=== PATIENT | male | born 1950 | race Hispanic/Latino ===

== ENCOUNTER 2018-09-22 05:21 | Observation (INO) | payer MEDICARE ==
[2018-09-04 14:39] LABS: BASOPHILS % 0.8 % (0.0-1.0); EOSINOPHILS # (AUTO) 0.2 (0.0-0.4); EOSINOPHILS % 4.3 % (0.0-6.0); HEMATOCRIT 43.6 % (38.2-49.6); HEMOGLOBIN 14.8 g/dL (14.0-18.0); LYMPHOCYTES # (AUTO) 1.6 (1.0-3.2); LYMPHOCYTES % 30.2 % (18.0-39.1); MEAN CORPUSCULAR HEMOGLOBIN 32.9 pg (28-32); MEAN CORPUSCULAR HGB CONC 33.9 g/dL (31-35); MEAN CORPUSCULAR VOLUME 96.9 fL (81-99); MONOCYTES # (AUTO) 0.6 (0.2-0.8); MONOCYTES % 11.5 % (4.4-11.3); NEUTROPHILS # (AUTO) 2.8 (2.1-6.9); PLATELET COUNT 169 x10e3/uL (140-360); RED CELL DISTRIBUTION WIDTH 13.6 % (11.7-14.4)
[2018-09-04 15:00] LABS: ANION GAP 16.1 mmol/L (8-16); BLOOD UREA NITROGEN 14 mg/dL (7-26); BUN/CREATININE RATIO 18 (6-25); CALCIUM 9.7 mg/dL (8.4-10.2); CARBON DIOXIDE 24 mmol/L (22-29); CHLORIDE 105 mmol/L (98-107); CREATININE, SERUM 0.78 mg/dL (0.72-1.25); EST GLOMERULAR FILTRATION RATE > 60 ML/MIN (60-); GLUCOSE 131 mg/dL (74-118); POTASSIUM 4.1 mmol/L (3.5-5.1); SODIUM 141 mmol/L (136-145)
--- NOTE | 2018-09-04 15:12 | Diagnostic Imaging Report ---
EXAMINATION: CHEST 2 VIEWS COMPARISON: Chest radiograph 06/22/2015. FINDINGS: TUBES and LINES: None. LUNGS: Lungs are well inflated. There is no evidence of pneumonia or pulmonary edema. PLEURA: No pleural effusion or pneumothorax. HEART AND MEDIASTINUM: The cardiomediastinal silhouette is unremarkable. There are atherosclerotic calcifications within the aorta. Tortuous thoracic aorta. BONES AND SOFT TISSUES: Findings compatible with diffuse idiopathic skeletal hyperostosis. UPPER ABDOMEN: No free air under the diaphragm. IMPRESSION: No acute radiographic abnormality. Signed by: Dr. Ashley Melgar MD on 09/04/2018 3:09 PM
[~2018-09-22] VITALS: Ht 180.3 cm; Wt 115.2 kg
[~2018-09-22 05:21] MED LIST: AUGMENTIN 875-1 EACH; BYSTOLIC PO; BYSTOLIC5 MG PO; LISINOPRIL10 MG PO; METFORMIN HCL500 MG PO; SIMVASTATIN40 MG PO; VICODIN 5-5001 EACH; VICOPROFEN 2001 EACH; VICTOZA 3-0.6 MG/0.1 SC
--- OUTSIDE RECORDS SUMMARY | 2018-09-22 05:23 | XMS REPORT | Continuity of Care Document ---
Author Author [facility] Interface Address Unknown Phone Unavailable Problems Problem Status Onset Date Classification Date Reported Comments Source NON SUPPURATIVE OTITIS MEDIA, TYMPANIC M Active 08/05/2017 [facility] CONDUCTIVE HEARING LOSS, CHRONIC NON SUP Active 2017 [facility] H66.3X9 - OTHER CHRONIC SUPPURATIVE OTIT [facility] H72.819 - MULTIPLE PERFORATIONS OF TYMPA Active 03/01/2017 ADRIANA Slater 379.91 - PAIN IN OR AROU Active 02/07/2012 [facility] Hard of hearing Active Problem 09/01/2017 [facility] HLD (<span ID="[id number]">Confirmed</span>) Active Problem 09/01/2017 [facility]N (<span ID="[id number]">Confirmed</span>) Active Problem 09/01/2017 [facility] Morbid obesity Active Problem 09/01/2017 [facility] CHRIS (<span ID="[id number]">Confirmed</span>)<sup>1</sup> Active Problem 09/01/2017 uses CPAP [facility] DM II , controlled(<span ID="[id number]">Confirmed</span>) Active Problem 09/01/2017 [facility] MIXED CONDUCTIVE AND SENSORINEURAL HEARI Active [facility] Medications Medication Details Route Status Patient Instructions Ordering Provider Order Date Source ondansetron (ANES) Route: IV, Drug form: INJ, ONCE, Stop date: 08/29/17 19:16:00 CDT Inactive 08/30/2017 [facility] tramadol 50 mg oral tablet 50 mg=1 tab, PO, Q6H, PRN Pain, X 7 day, # 30 tab, 0 Refill(s) Active 08/29/2017 [facility] ondansetron 4 mg oral tablet 4 mg=1 tab, PO, Q8H, PRN Nausea & Vomiting, # 30 tab, 0 Refill(s) Active 08/29/2017 [facility] ofloxacin otic 0.3% solution 5 drp, LEFT EAR, BID, X 14 day, # 10 mL, 1 Refill(s) Active 08/29/2017 [facility] oxyCODONE 5 mg oral tablet 5 mg, Route: PO, Drug form: TAB, ONCE, Dosing Weight 115.455, kg, PRN Pain Score 4-6, Start date: 08/29/17 11:26:00 CDT No Longer Active 08/29/2017 [facility] ePHEDrine (ANES) Route: IV, Drug form: INJ, ONCE, Stop date: 08/29/17 10:25:00 CDT Inactive 08/29/2017 [facility] famotidine (ANES) Route: IV, Drug form: INJ, ONCE, Stop date: 08/29/17 10:24:00 CDT Inactive 08/29/2017 [facility] lidocaine (ANES) Route: IV, Drug form: INJ, ONCE, Stop date: 08/29/17 10:24:00 CDT Inactive 08/29/2017 [facility] dexamethasone (ANES) Route: IV, Drug form: INJ, ONCE, Stop date: 08/29/17 10:24:00 CDT Inactive 08/29/2017 [facility] propofol (ANES) Route: IV, Drug form: INJ, ONCE, Stop date: 08/29/17 10:24:00 CDT Inactive 08/29/2017 [facility] succinylcholine (ANES) Route: IV, Drug form: INJ, ONCE, Stop date: 08/29/17 10:24:00 CDT Inactive 08/29/2017 [facility] fentaNYL (ANES) Route: IV, Drug form: INJ, ONCE, Stop date: 08/29/17 10:24:00 CDT Inactive 08/29/2017 [facility] phenylephrine (ANES) Route: IV, Drug form: INJ, ONCE, Stop date: 08/29/17 10:19:00 CDT Inactive 08/29/2017 [facility] ceFAZolin (ANES) Route: IV, Drug form: INJ, ONCE, Stop date: 08/29/17 10:19:00 CDT Inactive 08/29/2017 [facility] ANES naloxone 0.4 mg, 1 mL, Route: IVP, Drug form: INJ, Q2MIN, Dosing Weight 115.455, kg, PRN Narcotic Reversal, Start date: 08/29/17 10:16:00 CDT, Duration: 8 doses or times, Stop date: 08/30/17 0:00:00 CDTNotes: Same as Narcan No Longer Active 08/29/2017 [facility] ANES HYDROmorphone 0.5 mg, 0.25 mL, Route: IVP, Drug form: INJ, Q5Min, Dosing Weight 115.455, kg, PRN Pain Score 7-10, Start date: 08/29/17 10:16:00 CDT, Duration: 4 doses or times, Stop date: 08/30/17 0:00:00 CDTNotes: Same as: Dilaudid No Longer Active 08/29/2017 [facility] ANES flumazenil 0.2 mg, 2 mL, Route: IVP, Drug form: INJ, PRN, Dosing Weight 115.455, kg, PRN Benzodiazepine Reversal, Initial dose, Start date: 08/29/17 10:16:00 CDT, Duration: 30 day, Stop date: 09/28/17 9:15:00 CSTNotes: (Same as: Romazicon) No Longer Active 08/29/2017 [facility] ANES fentaNYL 25 microgram, 0.5 mL, Route: IVP, Drug form: INJ, Q5Min, Dosing Weight 115.455, kg, PRN Pain Score 4-6, Priority: Routine, Start date: 08/29/17 10:16:00 CDT, Duration: 4 doses or times, Stop date: 08/30 0:00:00 CDTNotes: (Same as: Sublimaze) Preservative free. No Longer Active 08/29/2017 [facility] ANES ondansetron 4 mg, 2 mL, Route: IVP, Drug form: INJ, ONCE, Dosing Weight 115.455, kg, PRN Nausea & Vomiting, Start date: 08/29/17 10:16:00 CDTNotes: (Same as: Zofran) MEDICATION WASTE Product Size: 4 mg Product Wasted: ___ mg No Longer Active 08/29/2017 [facility] ANES labetalol 10 mg, 2 mL, Route: IVP, Drug form: INJ, Q5Min, Dosing Weight 115.455, kg, PRN Elevated BP, Start date: 08/29/17 10:16:00 CDT, Duration: 5 doses or times, Stop date: 08/30/17 0:00:00 CDT No Longer Active 08/29/2017 [facility] acetaminophen (ANES) (ANES) Route: IV, Drug form: INJ, Start date: 08/29/17 10:15:00 CDT, Stop date: 08/29/17 11:15:00 CDT Inactive 08/29/2017 [facility] sodium chloride 0.9% 100 ml INJ (ANES) + magnesium sulfate (ANES) (ANES) Route: IV, Drug form: INJ, Start date: 08/29/17 10:04:00 CDT, Stop date: 08/29/17 11:04:00 CDT Inactive 08/29/2017 [facility] sodium chloride 0.9% 100 ml INJ (ANES) + remifentanil (ANES) (ANES) Route: IV, Drug form: INJ, Start date: 08/29/17 8:59:00 CDT, Stop date: 08/29/17 9:59:00 CDT Inactive 08/29/2017 [facility] LR 1000 mL INJ (ANES) Route: IV, Total Volume: 1,000, Start date: 08/29/17 8:23:00 CDT, Stop date: 08/29/17 9:23:00 CDT Inactive 08/29/2017 [facility] Osteo Bi-Flex 1 tab, PO, BID, 0 Refill(s) Active 08/08/2017 [facility] Victoza 18 mg/3 mL subcutaneous injection 1.2 mg, SUB-Q, Daily, # 6 mL, 3 Refill(s) Active 08/08/2017 [facility] losartan 50 mg, PO, Daily, 0 Refill(s) Active 08/08/2017 [facility] tramadol hydrochloride 50 MG Oral Tablet 50 mg=1 tab, PO, Q4H, PRN Pain, X 10 day, # 60 tab, 0 Refill(s) Active 03/28/2017 [facility] Amoxicillin 875 MG / Clavulanate 125 MG Oral Tablet [Augmentin 875-mg] 875 mg=1 tab, PO, Q12H, X 10 day, # 20 tab, 0 Refill(s) Active 03/28/2017 [facility] ondansetron (ANES) Route: IV, Drug form: INJ, ONCE, Stop date: 03/28/17 15:11:00 CDT Inactive 03/28/2017 [facility] furosemide (ANES) Route: IV, Drug form: INJ, ONCE, Stop date: 03/28/17 14:11:00 CDT Inactive 03/28/2017 [facility] phenylephrine (ANES) Route: IV, Drug form: INJ, ONCE, Stop date: 03/28/17 12:36:00 CDT Inactive 03/28/2017 [facility] magnesium sulfate (ANES) (ANES) Route: IV, Drug form: INJ, Start date: 03/28/17 12:32:00 CDT, Stop date: 03/28/17 13:32:00 CDT Inactive 03/28/2017 [facility] acetaminophen (ANES) Route: IV, Drug form: INJ, ONCE, Stop date: 03/28/17 12:32:00 CDT Inactive 03/28/2017 [facility] fentaNYL (ANES) Route: IV, Drug form: INJ, ONCE, Stop date: 03/28/17 12:32:00 CDT Inactive 03/28/2017 [facility] succinylcholine (ANES) Route: IV, Drug form: INJ, ONCE, Stop date: 03/28/17 12:32:00 CDT Inactive 03/28/2017 [facility] propofol (ANES) Route: IV, Drug form: INJ, ONCE, Stop date: 03/28/17 12:31:00 CDT Inactive 03/28/2017 [facility] lidocaine (ANES) Route: IV, Drug form: INJ, ONCE, Stop date: 03/28/17 12:31:00 CDT Inactive 03/28/2017 [facility] ceFAZolin (ANES) Route: IV, Drug form: INJ, ONCE, Stop date: 03/28/17 12:26:00 CDT Inactive 03/28/2017 [facility] Ondansetron 4 mg, 2 mL, Route: IVP, Drug form: INJ, ONCE, Dosing Weight 118.182, kg, PRN Nausea & Vomiting, Start date: 03/28/17 12:11:00 CDTNotes: (Same as: Zofran) MEDICATION WASTE Product Size: 4 mg Product Wasted: ___ mg No Longer Active 03/28/2017 [facility] Oxycodone 10 mg, 2 tab, Route: PO, Drug form: TAB, Q4H, Dosing Weight 118.182, kg, PRN Pain Score 7-10, Start date: 03/28/17 12:11:00 CDT, Duration: 30 day, Stop date: 04/27/17 12:10:00 CDTNotes: (Same as: Valerie icodone) No Longer Active 03/28/2017 [facility] Naloxone 0.4 mg, 1 mL, Route: IVP, Drug form: INJ, Q2MIN, Dosing Weight 118.182, kg, PRN Narcotic Reversal, Start date: 03/28/17 12:11:00 CDT, Duration: 8 doses or times, Stop date: Limited # of timesNotes: Same as Narcan No Longer Active 03/28/2017 [facility] Flumazenil 0.2 mg, 2 mL, Route: IVP, Drug form: INJ, PRN, Dosing Weight 118.182, kg, PRN Benzodiazepine Reversal, Initial dose, Start date: 03/28/17 12:11:00 CDT, Duration: 30 day, Stop date: 04/27/17 12:10:00 CDTNotes: (Same as: Romazicon) No Longer Active 03/28/2017 [facility] Hydromorphone 0.5 mg, 0.25 mL, Route: IVP, Drug form: INJ, Q5Min, Dosing Weight 118.182, kg, PRN Pain Score 7-10, Start date: 03/28/17 12:11:00 CDT, Duration: 4 doses or times, Stop date: Limited # of timesNotes: Same as: Dilaudid No Longer Active 03/28/2017 [facility] Metoprolol 1 mg, 1 mL, Route: IVP, Drug form: INJ, Q5Min, Dosing Weight 118.182, kg, PRN Other -See Comment, Start date: 03/28/17 12:11:00 CDT, Duration: 5 doses or times, Stop date: Limited # of timesNotes: (S bethany as: Lopressor) Push over 2 minutes No Longer Active 03/28/2017 [facility] Labetalol 10 mg, 2 mL, Route: IVP, Drug form: INJ, Q5Min, Dosing Weight 118.182, kg, PRN Elevated BP, Start date: 03/28/17 12:11:00 CDT, Duration: 5 doses or times, Stop date: Limited # of times No Longer Active 03/28/2017 [facility] esmolol 10 mg, 1 mL, Route: IVP, Drug form: INJ, Q5Min, Dosing Weight 118.182, kg, PRN Other -See Comment, Start date: 03/28/17 12:11:00 CDT, Duration: 5 doses or times, Stop date: Limited # of timesNotes: ( Same as: Brevibloc) No Longer Active 03/28/2017 [facility] Hydralazine 10 mg, 0.5 mL, Route: IVP, Drug form: INJ, Q20Min, Dosing Weight 118.182, kg, PRN Elevated BP, Start date: 03/28/17 12:11:00 CDT, Duration: 2 doses or times, Stop date: Limited # of timesNotes: (Same as: Apresoline) Push over 5 minutes No Longer Active 03/28/2017 [facility] dexmedetomidine (ANES) (ANES) Route: IV, Drug form: INJ, Start date: 03/28/17 11:40:00 CDT, Stop date: 03/28/17 12:40:00 CDT Inactive 03/28/2017 [facility] LR 1000 mL INJ (ANES) Route: IV, Total Volume: 1,000, Start date: 03/28/17 10:57:00 CDT, Stop date: 03/28/17 11:57:00 CDT Inactive 03/28/2017 [facility] Allergies, Adverse Reactions, Alerts Substance Category Reaction Severity Reaction type Status Date Reported Comments Source Immunizations Immunization Date Given Site Status Last Updated Comments Source Results Order Name Results Value Reference Range Date Interpretation Comments Source ELECTROLYTES AGAP 14.1 meq/L 10.0 - 20.0 03/15/2017 [facility] ELECTROLYTES eGFR 91 mL/min/1.73m2 03/15/2017 Result Comment: The eGFR is calculated using the CKD-EPI formula. In most young, healthy individuals the eGFR will be >90 mL/min/1.73m2. The eGFR declines with age. An eGFR of 60-89 may be normal in some populations, particularly the elderly, for whom the CKD-EPI formula has not been extensively validated. Use of the eGFR is not recommended in the following populations: Individuals with unstable creatinine concentrations, including patients and those with serious co-morbid conditions. Patients with extremes in muscle mass or diet. The data above are obtained from the National Kidney Disease Education Program (NKDEP) which additionally recommends that when the eGFR is used in patients with extremes of body mass index for purposes of drug dosing, the eGFR should be multiplied by the estimated BMI. [facility] ELECTROLYTES Calcium Lvl 9.4 mg/dL 8.5 - 10.5 03/15/2017 [facility] ELECTROLYTES Sodium Lvl 143 meq/L 135 - 145 03/15/2017 [facility] ELECTROLYTES Glucose Lvl 126 mg/dL 70 - 99 03/15/2017 [facility] ELECTROLYTES BUN 13 mg/dL 7 - 22 03/15/2017 [facility] ELECTROLYTES Potassium Lvl 4.1 meq/L 3.5 - 5.1 03/15/2017 [facility] ELECTROLYTES Creatinine Lvl 0.84 mg/dL 0.50 - 1.40 03/15/2017 [facility] ELECTROLYTES CO2 28 meq/L 24 - 32 03/15/2017 [facility] ELECTROLYTES Chloride Lvl 105 meq/L 95 - 109 03/15/2017 [facility] HEMATOLOGY MCHC 33.3 g/dL 32.0 - 36.0 03/15/2017 [facility] HEMATOLOGY MCH 32.7 pg 27.0 - 31.0 03/15/2017 [facility] HEMATOLOGY RDW 14.9 % 11.5 - 14.5 03/15/2017 [facility] HEMATOLOGY MPV 10.0 fL 7.4 - 10.4 03/15/2017 [facility] HEMATOLOGY Platelet 158 K/CMM 133 - 450 03/15/2017 [facility] HEMATOLOGY WBC 7.6 K/CMM 3.7 - 10.4 03/15/2017 [facility] HEMATOLOGY RBC 4.85 M/CMM 4.70 - 6.10 03/15/2017 [facility] HEMATOLOGY Hct 47.6 % 42.0 - 54.0 03/15/2017 [facility] HEMATOLOGY MCV 98.2 fL 80.0 - 94.0 03/15/2017 [facility] HEMATOLOGY Hgb 15.8 g/dL 14.0 - 18.0 03/15/2017 [facility] HEMATOLOGY Segs 57.0 % 45.0 - 75.0 03/15/2017 [facility] HEMATOLOGY Monocytes 9.5 % 2.0 - 12.0 03/15/2017 [facility] HEMATOLOGY Lymphocytes 31.0 % 20.0 - 40.0 03/15/2017 [facility] HEMATOLOGY Basophils 0.5 % 0.0 - 1.0 03/15/2017 [facility] HEMATOLOGY Segs-Bands # 4.3 K/CMM 1.5 - 8.1 03/15/2017 [facility] HEMATOLOGY Eosinophils 2.0 % 0.0 - 4.0 03/15/2017 [facility] HEMATOLOGY Lymphocytes # 2.4 K/CMM 1.0 - 5.5 03/15/2017 [facility] HEMATOLOGY Monocytes # 0.7 K/CMM 0.0 - 0.8 03/15/2017 [facility] HEMATOLOGY Eosinophils # 0.2 K/CMM 0.0 - 0.5 03/15/2017 [facility] SPECIAL CHEMISTRY Hgb A1C 7.6 % <=5.6 % 03/15/2017 [facility] Internal Auditory Canal wo contrast CT Internal Auditory Canal wo contrast CT CT temporal bones without intravenous contrast 03/13/2017 12:12 PM CDT Clinical: Right tinnitus. Comparison: No prior exam. Technique: Axial images were obtained. Sagittal and coronal MPR images are also submitted. The DLP is 312 mGy*cm. This exam was performed according to our department dose optimization protocol, which includes automated exposure control, adjustment of the mA and/or kV according to patient size and/or use of iterative reconstruction technique. Findings: Right temporal bone: Well-aerated right mastoid air cell. Mild soft tissue thickening in the right external auditory canal is present without osseous erosion. Moderate volume soft tissue is seen within the right epitympanum including the Prussak's space. There is mild erosion of the long process of the right incus. The right stapes is not seen. The right tegmen tympanum is intact. The right otic labyrinth appears unremarkable. The right superior semicircular canal is normal. The right internal auditory canal and carotid canal are intact. Left temporal bone: Mild opacification of several left inferior mastoid air cells. There is thickening of the left tympanic membrane with mild medial retraction. Small volume of soft tissue is seen in the left Prussak's space. The left stapes is not identified. The left otic labyrinth appears unremarkable. The left superior semicircular canal appears unremarkable. The left internal auditory canal and left carotid canal appear intact. Impression: 1. Soft tissue within the bilateral epitympanum and Prussak's spaces. Acquired cholesteatoma is suspected. 2. Unremarkable bilateral otic labyrinths. 3. Partial opacification of several left inferior mastoid air cells. 03/13/2017 - - Read by: Pietro Barnes MD Dictated Date/time: 03/13/17 17:42 Electronically Signed by: Pietro Barnes MD 03/13/17 17:51 FINAL REPORT AD[facility] Internal Auditory Canal wo contrast CT Internal Auditory Canal wo contrast CT CT temporal bones without contrast 04/15/2014 Clinical: Chronic otitis media. Comparison: None available. Findings: The DLP is 845 mGy - cm. Mild soft tissue thickening is seen circumferentially within the right external auditory canal. The right external auditory canal osseous margins remain intact without erosion. There is disruption of the right tympanic membrane. Mild soft tissue is present within the right lateral epitympanum, particularly the right Prussak's space. No erosion of the right middle ear ossicles or scutum is seen. Noncoalescent right mastoiditis is also present. The tegmen tympani and tegmen mastoideum appear intact. The right otic labyrinth appears unremarkable. No superior semicircular canal dehiscence is seen bilaterally. No otosclerosis is seen bilaterally. The bilateral internal auditory canals appear symmetric. The left inferior mastoid air cells contain effusion, without coalescence. The left middle ear cavity is well aerated. The left middle ear ossicles and left otic labyrinths appear unremarkable area. No evidence of aberrant internal carotid artery is identified. Right ethmoid mucosal disease is present. IMPRESSION: 1. Right otomastoiditis without mastoid coalescence. No ossicular erosion identified. 2. Small volume left inferior mastoid air cell effusion. 04/15/2014 - - Read by: Pietro Barnes MD Dictated Date/time: 04/15/14 14:46 Electronically Signed by: Pietro Barnes MD 04/15/14 17:36 FINAL REPORT [facility] Vital Signs Vital Sign Value Date Comments Source Respitory Rate 17 08/29/2017 [facility] Systolic (mm Hg) 133 08/29/2017 [facility] Diastolic (mm Hg) 69 08/29/2017 [facility] Systolic (mm Hg) 139 08/29/2017 [facility] Diastolic (mm Hg) 75 08/29/2017 [facility] Respitory Rate 18 08/29/2017 [facility] Systolic (mm Hg) 144 08/29/2017 [facility] Diastolic (mm Hg) 78 08/29/2017 [facility] Respitory Rate 17 08/29/2017 [facility] Heart Rate 92 08/29/2017 [facility] BMI Calculated 35.5 08/29/2017 [facility] Weight 115.455 08/29/2017 [facility] Height 180.34 cm 08/29/2017 [facility] Weight 115.455 08/08/2017 [facility] BMI Calculated 35.5 08/08/2017 [facility] Height 180.34 cm 08/08/2017 [facility] Systolic (mm Hg) 135 03/28/2017 [facility] Diastolic (mm Hg) 76 03/28/2017 [facility] Respitory Rate 17 03/28/2017 [facility] Systolic (mm Hg) 131 03/28/2017 [facility] Diastolic (mm Hg) 62 03/28/2017 [facility] Respitory Rate 16 03/28/2017 [facility] Systolic (mm Hg) 127 03/28/2017 [facility] Diastolic (mm Hg) 62 03/28/2017 [facility] Respitory Rate 16 03/28/2017 [facility] Heart Rate 81 03/28/2017 [facility] Height 180.34 cm 03/28/2017 [facility] Weight 118.182 03/28/2017 [facility] BMI Calculated 36.34 03/28/2017 [facility] Height 180.34 cm 03/15/2017 [facility] BMI Calculated 36.9 03/15/2017 [facility] Weight 120 03/15/2017 [facility] Heart Rate 78 03/15/2017 [facility] Encounters Location Location Details Encounter Type Encounter Number Reason For Visit Attending Provider ADM Date DC Date Status Source OD [id number] 379.91 - PAIN IN OR JASON ACE 02/08/2012 Active [facility] [place] [facility] [place] [facility] [id number] Marichuy Oakley 04/15/2014 04/16/2014 [facility] [place] [facility] [place] [facility] [id number] Sancak Yuksel 03/13/2017 03/14/2017 [facility] [place] [facility] [id number] Sancak Yuksel 03/28/2017 03/29/2017 [facility] Day [facility] [id number] Sancak Yuksel 08/29/2017 08/30/2017 [facility] Procedures Procedure Code Date Perfomer Comments Source Bunionectomy [id number] [facility] [place] Hernia repair [id number] [facility] [place] Shoulder repair [id number] [facility] [place] Bunionectomy [id number] [facility] Hernia repair [id number] [facility] Shoulder repair [id number] [facility]
--- OUTSIDE RECORDS SUMMARY | 2018-09-22 05:24 | XMS REPORT ---
Author Author [facility] Address Unknown Phone Unavailable Care Team Providers Care Educational Specialist Name Role Phone DALI LEAL Unavailable Unavailable Problems This patient has no known problems. Allergies, Adverse Reactions, Alerts This patient has no known allergies or adverse reactions. Medications This patient has no known medications. Results Test Description Test Time Test Comments Text Results Atomic Results Result Comments CHEST 2 VIEWS 2018-09-04 15:05:00 [place] [address] Patient Name: KWABENA MYERS MR #: [id number] : 1950 Age/Sex: 68/M Req #: [id number] [facility] Physician: Ordered by: DALI LEAL MD Report #: [id number] Location: OR Room/Bed: Procedure: [id number] DX/CHEST 2 VIEWS Exam Date: 09/04/18 Exam Time: 1435 REPORT STATUS: Signed EXAMINATION: CHEST 2 VIEWS COMPARISON: Chest radio graph 06/22/2015. FINDINGS: TUBES and LINES: None. LUNGS: Lungs are well inflated. There is no evidence of pneumonia or pulmonary edema. PLEURA: No pleural effusion or pneumothorax. HEART AND MEDIASTINUM: The cardiomediastinal silhouette is unremarkable. There are atherosclerotic calcifications within the aorta. Tortuous thoracic aorta. BONES AND SOFT TISSUES: Findings compatible with diffuse idiopathic skeletal hyperostosis. UPPER ABDOMEN: No free air under the diaphragm. IMPRESSION: No acute radiographic abnormality. Signed by: Dr. Marcia Cleary MD on 09/04/2018 3:09 PM Dictated By: MARCIA CLEARY MD [id number] Transcribed By: KILEY on 09/04/18 0136 COPY TO: DALI LEAL MD
--- OUTSIDE RECORDS SUMMARY | 2018-09-22 05:24 | XMS REPORT | Summary of Care ---
Author Author [facility] Organization [facility] Address Unknown Phone Unavailable Encounter SHAN Orta(GURDEEP) [id number] Date(s): 03/28/17 - 03/28/[address] [phone] Discharge Disposition: Home or Self Care Attending Physician: Madelyn Ross MD Referring Physician: Madelyn Ross MD Vital Signs 1 2 3 Most recent to oldest [Reference Range]: 180.34 cm (03/28/17 10:30 AM) 180.34 cm (03/15/17 2:43 PM) Height 135/76 mmHg (03/28/17 4:45 PM) 131/62 mmHg (03/28/17 4:15 PM) 127/62 mmHg (03/28/17 4:00 PM) Blood Pressure [90-140/60-90 mmHg] 17 BRMIN (03/28/17 4:45 PM) 16 BRMIN (03/28/17 4:15 PM) 16 BRMIN (03/28/17 4:00 PM) Respiratory Rate [14-20 BRMIN] 81 bpm (03/28/17 10:30 AM) 78 bpm (03/15/17 2:43 PM) Peripheral Pulse Rate [60-100 bpm] 118.182 kg (03/28/17 10:30 AM) 120 kg (03/15/17 2:43 PM) Weight 36.34 m2 (03/28/17 10:30 AM) 36.9 m2 (03/15/17 2:43 PM) Body Mass Index Problem List Condition Effective Dates Status Health Status Informant HLD Active (hyperlipidemia)(Con firmed) HTN Active (hypertension)(Confi rmed) Morbid Active obesity(Confirmed) DM II (diabetes Active mellitus, type II), controlled(Confirmed ) Allergies, Adverse Reactions, Alerts Substance Reaction Severity Status NKDA Active Medications acetaminophen (ANES) Route: IV, Drug form: INJ, ONCE, Stop date: 03/28/17 12:32:00 CDT Start Date: 03/28/17 Stop Date: 03/28/17 Status: Completed ANES esmolol 10 mg, 1 mL, Route: IVP, Drug form: INJ, Q5Min, Dosing Weight 118.182, kg, PRN O ther -See Comment, Start date: 03/28/17 12:11:00 CDT, Duration: 5 doses or times , Stop date: Limited # of times Notes: (Same as: Brevibloc) Start Date: 03/28/17 Stop Date: 03/29/17 Status: Discontinued ANES flumazenil 0.2 mg, 2 mL, Route: IVP, Drug form: INJ, PRN, Dosing Weight 118.182, kg, PRN Be nzodiazepine Reversal, Initial dose, Start date: 03/28/17 12:11:00 CDT, Duration : 30 day, Stop date: 04/27/17 12:10:00 CDT Notes: (Same as: Romazicon) Start Date: 03/28/17 Stop Date: 03/29/17 Status: Discontinued ANES hydrALAZINE 10 mg, 0.5 mL, Route: IVP, Drug form: INJ, Q20Min, Dosing Weight 118.182, kg, OH N Elevated BP, Start date: 03/28/17 12:11:00 CDT, Duration: 2 doses or times, St op date: Limited # of times Notes: (Same as: Apresoline)Push over 5 minutes Start Date: 03/28/17 Stop Date: 03/29/17 Status: Discontinued ANES HYDROmorphone 0.5 mg, 0.25 mL, Route: IVP, Drug form: INJ, Q5Min, Dosing Weight 118.182, kg, P RN Pain Score 7-10, Start date: 03/28/17 12:11:00 CDT, Duration: 4 doses or time s, Stop date: Limited # of times Notes: Same as: Dilaudid Start Date: 03/28/17 Stop Date: 03/29/17 Status: Discontinued ANES labetalol 10 mg, 2 mL, Route: IVP, Drug form: INJ, Q5Min, Dosing Weight 118.182, kg, PRN E levated BP, Start date: 03/28/17 12:11:00 CDT, Duration: 5 doses or times, Stop date: Limited # of times Start Date: 03/28/17 Stop Date: 03/29/17 Status: Discontinued ANES metoprolol 1 mg, 1 mL, Route: IVP, Drug form: INJ, Q5Min, Dosing Weight 118.182, kg, PRN Ot her -See Comment, Start date: 03/28/17 12:11:00 CDT, Duration: 5 doses or times, Stop date: Limited # of times Notes: (Same as: Lopressor)Push over 2 minutes Start Date: 03/28/17 Stop Date: 03/29/17 Status: Discontinued ANES naloxone 0.4 mg, 1 mL, Route: IVP, Drug form: INJ, Q2MIN, Dosing Weight 118.182, kg, PRN Narcotic Reversal, Start date: 03/28/17 12:11:00 CDT, Duration: 8 doses or times , Stop date: Limited # of times Notes: Same as Narcan Start Date: 03/28/17 Stop Date: 03/29/17 Status: Discontinued ANES ondansetron 4 mg, 2 mL, Route: IVP, Drug form: INJ, ONCE, Dosing Weight 118.182, kg, PRN Eric sea & Vomiting, Start date: 03/28/17 12:11:00 CDT Notes: (Same as: Jessica) MEDICATION WASTE Product Size: 4 mgProduct Was juan pablo: ___ mg Start Date: 03/28/17 Stop Date: 03/29/17 Status: Discontinued ANES oxyCODONE 10 mg, 2 tab, Route: PO, Drug form: TAB, Q4H, Dosing Weight 118.182, kg, PRN Tania n Score 7-10, Start date: 03/28/17 12:11:00 CDT, Duration: 30 day, Stop date: 12:10:00 CDT Notes: (Same as: Roxicodone) Start Date: 03/28/17 Stop Date: 03/29/17 Status: Discontinued ANES oxyCODONE 5 mg, 1 tab, Route: PO, Drug form: TAB, Q4H, Dosing Weight 118.182, kg, PRN Pain Score 4-6, Start date: 03/28/17 12:11:00 CDT, Duration: 30 day, Stop date: 11/13 12:10:00 CDT Notes: (Same as: Roxicodone) Start Date: 03/28/17 Stop Date: 03/29/17 Status: Discontinued Augmentin 875 mg oral tablet 875 mg=1 tab, PO, Q12H, X 10 day, # 20 tab, 0 Refill(s) Start Date: 03/28/17 Stop Date: 04/07/17 Status: Ordered ceFAZolin (ANES) Route: IV, Drug form: INJ, ONCE, Stop date: 03/28/17 12:26:00 CDT Start Date: 03/28/17 Stop Date: 03/28/17 Status: Completed dexmedetomidine (ANES) (ANES) Route: IV, Drug form: INJ, Start date: 03/28/17 11:40:00 CDT, Stop date: 7 12:40:00 CDT Start Date: 03/28/17 Stop Date: 03/28/17 Status: Completed fentaNYL (ANES) Route: IV, Drug form: INJ, ONCE, Stop date: 03/28/17 12:32:00 CDT Start Date: 03/28/17 Stop Date: 03/28/17 Status: Completed furosemide (ANES) Route: IV, Drug form: INJ, ONCE, Stop date: 03/28/17 14:11:00 CDT Start Date: 03/28/17 Stop Date: 03/28/17 Status: Completed lidocaine (ANES) Route: IV, Drug form: INJ, ONCE, Stop date: 03/28/17 12:31:00 CDT Start Date: 03/28/17 Stop Date: 03/28/17 Status: Completed LR 1000 mL INJ (ANES) Route: IV, Total Volume: 1,000, Start date: 03/28/17 10:57:00 CDT, Stop date: 11:57:00 CDT Start Date: 03/28/17 Stop Date: 03/28/17 Status: Completed magnesium sulfate (ANES) (ANES) Route: IV, Drug form: INJ, Start date: 03/28/17 12:32:00 CDT, Stop date: 7 13:32:00 CDT Start Date: 03/28/17 Stop Date: 03/28/17 Status: Completed ondansetron (ANES) Route: IV, Drug form: INJ, ONCE, Stop date: 03/28/17 15:11:00 CDT Start Date: 03/28/17 Stop Date: 03/28/17 Status: Completed phenylephrine (ANES) Route: IV, Drug form: INJ, ONCE, Stop date: 03/28/17 12:36:00 CDT Start Date: 03/28/17 Stop Date: 03/28/17 Status: Completed propofol (ANES) Route: IV, Drug form: INJ, ONCE, Stop date: 03/28/17 12:31:00 CDT Start Date: 03/28/17 Stop Date: 03/28/17 Status: Completed succinylcholine (ANES) Route: IV, Drug form: INJ, ONCE, Stop date: 03/28/17 12:32:00 CDT Start Date: 03/28/17 Stop Date: 03/28/17 Status: Completed tramadol 50 mg oral tablet 50 mg=1 tab, PO, Q4H, PRN Pain, X 10 day, # 60 tab, 0 Refill(s) Start Date: 03/28/17 Stop Date: 04/07/17 Status: Ordered Results ELECTROLYTES Most recent to 1 oldest [Reference Range]: Sodium Lvl [135-145 143 mEq/L mEq/L] (03/15/17 10:40 AM) Potassium Lvl 4.1 mEq/L [3.5-5.1 mEq/L] (03/15/17 10:40 AM) Chloride Lvl [95-109 105 mEq/L mEq/L] (03/15/17 10:40 AM) CO2 [24-32 mEq/L] 28 mEq/L (03/15/17 10:40 AM) AGAP [10.0-20.0 14.1 mEq/L mEq/L] (03/15/17 10:40 AM) CHEM PANEL Most recent to 1 oldest [Reference Range]: Creatinine Lvl 0.84 mg/dL [0.50-1.40 mg/dL] (03/15/17 10:40 AM) eGFR 91 mL/min/1.73m2 1 *NA* (03/15/17 10:40 AM) BUN [7-22 mg/dL] 13 mg/dL (03/15/17 10:40 AM) Glucose Lvl [70-99 126 mg/dL mg/dL] *HI* (03/15/17 10:40 AM) Calcium Lvl 9.4 mg/dL [8.5-10.5 mg/dL] (03/15/17 10:40 AM) 1Result Comment: The eGFR is calculated using the [...] from the National Kidney Disease Education Program ( NKDEP) which additionally recommends that when the eGFR is used in patients with extremes of body mass index for purposes of drug dosing, the eGFR should be mul tiplied by the estimated BMI. SPECIAL CHEMISTRY Most recent to 1 oldest [Reference Range]: Hgb A1C [<=5.6 %] 7.6 % *HI* (03/15/17 10:40 AM) HEMATOLOGY Most recent to 1 oldest [Reference Range]: WBC [3.7-10.4 K/CMM] 7.6 K/CMM (03/15/17 10:40 AM) RBC [4.70-6.10 4.85 M/CMM M/CMM] (03/15/17 10:40 AM) Hgb [14.0-18.0 g/dL] 15.8 g/dL (03/15/17 10:40 AM) Hct [42.0-54.0 %] 47.6 % (03/15/17 10:40 AM) MCV [80.0-94.0 fL] 98.2 fL *HI* (03/15/17 10:40 AM) MCH [27.0-31.0 pg] 32.7 pg *HI* (03/15/17 10:40 AM) MCHC [32.0-36.0 33.3 g/dL g/dL] (03/15/17 10:40 AM) RDW [11.5-14.5 %] 14.9 % *HI* (03/15/17 10:40 AM) Platelet [133-450 158 K/CMM K/CMM] (03/15/17 10:40 AM) MPV [7.4-10.4 fL] 10.0 fL (03/15/17 10:40 AM) Segs [45.0-75.0 %] 57.0 % (03/15/17 10:40 AM) Lymphocytes 31.0 % [20.0-40.0 %] (03/15/17 10:40 AM) Monocytes [2.0-12.0 9.5 % %] (03/15/17 10:40 AM) Eosinophils [0.0-4.0 2.0 % %] (03/15/17 10:40 AM) Basophils [0.0-1.0 0.5 % %] (03/15/17 10:40 AM) Segs-Bands # 4.3 K/CMM [1.5-8.1 K/CMM] (03/15/17 10:40 AM) Lymphocytes # 2.4 K/CMM [1.0-5.5 K/CMM] (03/15/17 10:40 AM) Monocytes # [0.0-0.8 0.7 K/CMM K/CMM] (03/15/17 10:40 AM) Eosinophils # 0.2 K/CMM [0.0-0.5 K/CMM] (03/15/17 10:40 AM) Immunizations No data available for this section Procedures Procedure Date Related Diagnosis Body Site Bunionectomy Hernia repair Shoulder repair Social History Social History Type Response Substance Abuse Use: None. Alcohol Never Smoking Status Never smoker; Exposure to Tobacco Smoke None; Cigarette Smoking Last 365 Days No; Reg Smoking Cessation Counseling No Assessment and Plan No data available for this section
--- OUTSIDE RECORDS SUMMARY | 2018-09-22 05:24 | XMS REPORT | Summary of Care ---
Author Author [facility] Organization [facility] Address Unknown Phone Unavailable Encounter HQ You(GURDEEP) [id number] Date(s): 08/29/17 - 08/29/[address] [phone] Discharge Disposition: Home or Self Care Attending Physician: Madelyn Ross MD Referring Physician: Madelyn Ross MD Vital Signs 1 2 3 Most recent to oldest [Reference Range]: 180.34 cm (08/29/17 6:41 AM) 180.34 cm (08/08/17 10:39 AM) Height 133/69 mmHg (08/29/17 12:02 PM) 139/75 mmHg (08/29/17 11:45 AM) 144/78 mmHg *HI* (08/29/17 11:30 AM) Blood Pressure [90-140/60-90 mmHg] 17 BRMIN (08/29/17 12:02 PM) 18 BRMIN (08/29/17 11:45 AM) 17 BRMIN (08/29/17 11:30 AM) Respiratory Rate [14-20 BRMIN] 92 bpm (08/29/17 6:41 AM) Peripheral Pulse Rate [60-100 bpm] 115.455 kg (08/29/17 6:41 AM) 115.455 kg (08/08/17 10:39 AM) Weight 35.5 m2 (08/29/17 6:41 AM) 35.5 m2 (08/08/17 10:39 AM) Body Mass Index Problem List Condition Effective Dates Status Health Status Informant Hard of Active hearing(Confirmed) HLD Active (hyperlipidemia)(Con firmed) HTN Active (hypertension)(Confi rmed) Morbid Active obesity(Confirmed) CHRIS (obstructive Active sleep apnea)(Confirmed)1 DM II (diabetes Active mellitus, type II), controlled(Confirmed ) 1uses CPAP Allergies, Adverse Reactions, Alerts Substance Reaction Severity Status NKDA Active Medications acetaminophen (ANES) (ANES) Route: IV, Drug form: INJ, Start date: 08/29/17 10:15:00 CDT, Stop date: 7 11:15:00 CDT Start Date: 08/29/17 Stop Date: 08/29/17 Status: Completed ANES fentaNYL 25 microgram, 0.5 mL, Route: IVP, Drug form: INJ, Q5Min, Dosing Weight 115.455, kg, PRN Pain Score 4-6, Priority: Routine, Start date: 08/29/17 10:16:00 CDT, Du ration: 4 doses or times, Stop date: 08/30/17 0:00:00 CDT Notes: (Same as: Sublimaze) Preservative free. Start Date: 08/29/17 Stop Date: 08/30/17 Status: Completed ANES flumazenil 0.2 mg, 2 mL, Route: IVP, Drug form: INJ, PRN, Dosing Weight 115.455, kg, PRN Be nzodiazepine Reversal, Initial dose, Start date: 08/29/17 10:16:00 CDT, Duration : 30 day, Stop date: 09/28/17 9:15:00 BOAT BUILDER Notes: (Same as: Romazicon) Start Date: 08/29/17 Stop Date: 08/30/17 Status: Discontinued ANES HYDROmorphone 0.5 mg, 0.25 mL, Route: IVP, Drug form: INJ, Q5Min, Dosing Weight 115.455, kg, P RN Pain Score 7-10, Start date: 08/29/17 10:16:00 CDT, Duration: 4 doses or time s, Stop date: 08/30/17 0:00:00 CDT Notes: Same as: Dilaudid Start Date: 08/29/17 Stop Date: 08/30/17 Status: Completed ANES labetalol 10 mg, 2 mL, Route: IVP, Drug form: INJ, Q5Min, Dosing Weight 115.455, kg, PRN E levated BP, Start date: 08/29/17 10:16:00 CDT, Duration: 5 doses or times, Stop date: 08/30/17 0:00:00 CDT Start Date: 08/29/17 Stop Date: 08/30/17 Status: Completed ANES naloxone 0.4 mg, 1 mL, Route: IVP, Drug form: INJ, Q2MIN, Dosing Weight 115.455, kg, PRN Narcotic Reversal, Start date: 08/29/17 10:16:00 CDT, Duration: 8 doses or times , Stop date: 08/30/17 0:00:00 CDT Notes: Same as Narcan Start Date: 08/29/17 Stop Date: 08/30/17 Status: Completed ANES ondansetron 4 mg, 2 mL, Route: IVP, Drug form: INJ, ONCE, Dosing Weight 115.455, kg, PRN Eric sea & Vomiting, Start date: 08/29/17 10:16:00 CDT Notes: (Same as: Jessica) MEDICATION WASTE Product Size: 4 mgProduct Was juan pablo: ___ mg Start Date: 08/29/17 Stop Date: 08/30/17 Status: Discontinued ceFAZolin (ANES) Route: IV, Drug form: INJ, ONCE, Stop date: 08/29/17 10:19:00 CDT Start Date: 08/29/17 Stop Date: 08/29/17 Status: Completed dexamethasone (ANES) Route: IV, Drug form: INJ, ONCE, Stop date: 08/29/17 10:24:00 CDT Start Date: 08/29/17 Stop Date: 08/29/17 Status: Completed ePHEDrine (ANES) Route: IV, Drug form: INJ, ONCE, Stop date: 08/29/17 10:25:00 CDT Start Date: 08/29/17 Stop Date: 08/29/17 Status: Completed famotidine (ANES) Route: IV, Drug form: INJ, ONCE, Stop date: 08/29/17 10:24:00 CDT Start Date: 08/29/17 Stop Date: 08/29/17 Status: Completed fentaNYL (ANES) Route: IV, Drug form: INJ, ONCE, Stop date: 08/29/17 10:24:00 CDT Start Date: 08/29/17 Stop Date: 08/29/17 Status: Completed lidocaine (ANES) Route: IV, Drug form: INJ, ONCE, Stop date: 08/29/17 10:24:00 CDT Start Date: 08/29/17 Stop Date: 08/29/17 Status: Completed losartan 50 mg, PO, Daily, 0 Refill(s) Start Date: 08/08/17 Status: Ordered LR 1000 mL INJ (ANES) Route: IV, Total Volume: 1,000, Start date: 08/29/17 8:23:00 CDT, Stop date: 12/14 9:23:00 CDT Start Date: 08/29/17 Stop Date: 08/29/17 Status: Completed ofloxacin otic 0.3% solution 5 drp, LEFT EAR, BID, X 14 day, # 10 mL, 1 Refill(s) Start Date: 08/29/17 Stop Date: 09/26/17 Status: Ordered ondansetron (ANES) Route: IV, Drug form: INJ, ONCE, Stop date: 08/29/17 19:16:00 CDT Start Date: 08/29/17 Stop Date: 08/29/17 Status: Completed ondansetron 4 mg oral tablet 4 mg=1 tab, PO, Q8H, PRN Nausea & Vomiting, # 30 tab, 0 Refill(s) Start Date: 08/29/17 Stop Date: 09/03/17 Status: Ordered Osteo Bi-Flex 1 tab, PO, BID, 0 Refill(s) Start Date: 08/08/17 Status: Ordered oxyCODONE 5 mg oral tablet 5 mg, Route: PO, Drug form: TAB, ONCE, Dosing Weight 115.455, kg, PRN Pain Score 4-6, Start date: 08/29/17 11:26:00 CDT Start Date: 08/29/17 Stop Date: 08/30/17 Status: Discontinued phenylephrine (ANES) Route: IV, Drug form: INJ, ONCE, Stop date: 08/29/17 10:19:00 CDT Start Date: 08/29/17 Stop Date: 08/29/17 Status: Completed propofol (ANES) Route: IV, Drug form: INJ, ONCE, Stop date: 08/29/17 10:24:00 CDT Start Date: 08/29/17 Stop Date: 08/29/17 Status: Completed sodium chloride 0.9% 100 ml INJ (ANES) + magnesium sulfate (ANES) (ANES) Route: IV, Drug form: INJ, Start date: 08/29/17 10:04:00 CDT, Stop date: 7 11:04:00 CDT Start Date: 08/29/17 Stop Date: 08/29/17 Status: Completed sodium chloride 0.9% 100 ml INJ (ANES) + remifentanil (ANES) (ANES) Route: IV, Drug form: INJ, Start date: 08/29/17 8:59:00 CDT, Stop date: 08/29/17 9:59:00 CDT Start Date: 08/29/17 Stop Date: 08/29/17 Status: Completed succinylcholine (ANES) Route: IV, Drug form: INJ, ONCE, Stop date: 08/29/17 10:24:00 CDT Start Date: 08/29/17 Stop Date: 08/29/17 Status: Completed tramadol 50 mg oral tablet 50 mg=1 tab, PO, Q6H, PRN Pain, X 7 day, # 30 tab, 0 Refill(s) Start Date: 08/29/17 Stop Date: 09/05/17 Status: Ordered Victoza 18 mg/3 mL subcutaneous injection 1.2 mg, SUB-Q, Daily, # 6 mL, 3 Refill(s) Start Date: 08/08/17 Status: Ordered Results No data available for this section Immunizations No data available for this section Procedures Procedure Date Related Diagnosis Body Site Bunionectomy Hernia repair Shoulder repair Social History Social History Type Response Substance Abuse Use: None. Alcohol Never Smoking Status Never smoker; Type: Cigarettes; Previous treatment: None; Exposure to Tobacco Smoke None; Cigarette Smoking Last 365 Days No; Reg Smoking Cessation Counseling No Assessment and Plan No data available for this section
--- OUTSIDE RECORDS SUMMARY | 2018-09-22 05:24 | XMS REPORT | Summary of Care ---
Author Author [facility] Organization [facility] Address Unknown Phone Unavailable Encounter HQ Mega_katie(FIN) [id number] Date(s): 03/13/17 - 03/13/17 [facility] [address] [place] [phone] Discharge Disposition: Home or Self Care Attending Physician: Madelyn Ross MD Vital Signs No data available for this section Problem List Condition Effective Dates Status Health Status Informant HLD Active (hyperlipidemia)(Con firmed) HTN Active (hypertension)(Confi rmed) Morbid Active obesity(Confirmed) DM II (diabetes Active mellitus, type II), controlled(Confirmed ) Allergies, Adverse Reactions, Alerts Substance Reaction Severity Status NKDA Active Medications No data available for this section Results No data available for this section [...]
--- OUTSIDE RECORDS SUMMARY | 2018-09-22 05:24 | XMS REPORT | Summary of Care ---
Author Author JEANCARLOS Florez, ANA MARIA Organization Unknown Address Unknown Phone Unavailable Care Team Providers Care Equipment Or Machinery Cleaner Name Role Phone JEANCARLOS Florez, ANA MARIA Unavailable Unavailable KOLE DESHPANDE MD Unavailable Unavailable BERONICA SEALS ID, JOSEF Suarez Unavailable Unavailable JEANCARLOS SEALS ID, ANA MARIA Unavailable Unavailable Unavailable Unavailable Functional Status Name Dates Details Functional status health issues are not documented Status: Name Dates Details Cognitive status health issues are not documented Status: Problems Name Dates Details Otorrhea of right ear (388.60, H92.11) Status: Active Status post mastoidectomy (V45.89, Z90.89) Status: Active Multiple perforations of tympanic membrane, unspecified laterality (384.24, H72.819) Status: Active 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, 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) Status: Active Chronic suppurative otitis media (382.3, H66.3X9) Status: Active Status post tympanoplasty (V45.89, Z98.890) Status: Active Medications Name Dates Details Hydrocodone-Ibuprofen 7.5-200 MG Oral Tablet Active Simvastatin 40 MG Oral Tablet * Refills: 0 Active Lisinopril 10 MG Oral Tablet * Refills: 0 Active Glucosamine Chondroitin TABS * Refills: 0 Active CPAP Continuous Positive Airway Pressure * Refills: 0 Active MetFORMIN HCl TABS * Refills: 0 Active Losartan Potassium TABS * Refills: 0 Active Victoza SOLN * Refills: 0 Active Allergies and Adverse Reactions Name Dates Details No Known Allergies (Allergy) Status: Active Past Medical History Name Dates Details History of diabetes mellitus (V12.29, Z86.39) Status: Resolved History of essential hypertension (V12.59, Z86.79) Status: Resolved History of High cholesterol (272.0, E78.00) Status: Resolved History of Obstructive sleep apnea (327.23, G47.33) Status: Resolved Procedures Procedure Dates Details History of Hernia Repair Completed History of Simple Bunion Exostectomy (Silver Procedure) Completed History of Shoulder Surgery Completed Immunization Name Dates Details Immunizations not documented Family History Name Dates Details Family history of diabetes mellitus (V18.0, Z83.3) Status: Active Social History Name Dates Details - Status: Name Dates Details Former smoker Vital Signs Date Test Result Details 28-Feb-20188:07 BP Systolic 121 mm[Hg] Status: BP Diastolic 73 mm[Hg] Status: Height 67 in Status: Weight 247 lb Status: Body Mass Index Calculated 38.69 kg/m2 Status: Body Surface Area Calculated 2.21 m2 Status: Temperature 97.5 f Status: Heart Rate 87 /min Status: Results Date Description Value Details Results not documented Plan of Care Name Dates Details Planned Observations Planned Goals not documented Planned Encounters Appointment; BETZY RAMIREZ On: 10-Apr-2018 9:00 Appointment; ANA MARIA ARSHAD M.D. On: 27-Feb-2019 8:00 Appointment; VERONICA SEVILLA On: 27-Feb-2019 8:30 Interventions Provided Follow-ups/Referrals* Audiology Referral; Done: 28 Feb 2018 * Follow-up visit in 1 year; Done: 28 Feb 2018 Plan* Mr. Velarde' left operated ear drum healed well, there is no perforation anymore, his hearing has also improved subjectively. I cleaned both ears from cerumen today and otoscopy was normal bilaterally. Postop audiogram was done today which showed significant improvement compared to previous. Recommend follow up with audiology for hearing aid consultation and follow up with us in 1 year. Instructions Name Dates Details Instructions not documented Encounters Appointment; JOSEF LOCO M.D. Encounter Diagnosis: Problem not documented On: 18-Sep-2016 8:45 Appointment; JOSEF LOCO M.D. Encounter Diagnosis: Problem not documented On: 25-Sep-2016 8:30 Appointment; JOSEF LOCO M.D. Encounter Diagnosis: Problem not documented On: 02-Oct-2016 9:00 Appointment; JOSEF LOCO M.D. Encounter Diagnosis: Problem not documented On: 09-Oct-2016 9:00 Appointment; ANA MARIA ARSHAD M.D. Encounter Diagnosis: Problem not documented On: 15-Jan-2017 9:00 Appointment; BETZY RAMIREZ Encounter Diagnosis: Problem not documented On: 15-Jan-2017 9:30 Appointment; ANA MARIA ARSHAD M.D. Encounter Diagnosis: Problem not documented On: 01-Mar-2017 15:30 Appointment; VERONICA SEVILLA Encounter Diagnosis: Problem not documented On: 01-Mar-2017 16:00 Appointment; ANA MARIA ARSHAD M.D. Encounter Diagnosis: Problem not documented On: 08-Mar-2017 9:30 Appointment; ANA MARIA ARSHAD M.D. Encounter Diagnosis: Problem not documented On: 29-Mar-2017 9:15 Appointment; ANA MARIA ARSHAD M.D. Encounter Diagnosis: Problem not documented On: 09-Apr-2017 9:00 Appointment; ANA MARIA ARSHAD M.D. Encounter Diagnosis: Problem not documented On: 18-Jun-2017 8:30 Appointment; ANA MARIA ARSHAD M.D. Encounter Diagnosis: Problem not documented On: 02-Aug-2017 8:00 Appointment; BETZY RAMIREZ Encounter Diagnosis: Problem not documented On: 02-Aug-2017 8:30 Appointment; ANA MARIA ARSHAD M.D. Encounter Diagnosis: Problem not documented On: 24-Sep-2017 8:00 Appointment; ANA MARIA ARSHAD M.D. Encounter Diagnosis: Problem not documented On: 28-Feb-2018 8:00
[2018-09-22] MEDS ORDERED: DEXAMETHASONE SOD PHOS 10 MG/1 ML VIAL ONE (05:46)
[2018-09-22] MEDS ORDERED: GABAPENTIN 300 MG CAP ONE (05:46)
[2018-09-22] MEDS ORDERED: CELECOXIB 200 MG CAP ONE (05:46)
[2018-09-22] MEDS ORDERED: CEFAZOLIN SOD 2 GM/D5W 50ML 50 ML IV ONE (05:47)
[2018-09-22] MEDS ORDERED: TRANEXAMIC ACID 1,000 MG/10 ML ML ONE (06:31)
[2018-09-22] MEDS ORDERED: BACITRACIN 50,000 UNIT VIAL ONE (06:32)
[2018-09-22] MEDS ORDERED: ROPIVACAINE 246.25 MG, EPINEPHRINE HCL 1:1000 0.5 MG, CLONIDINE HCL 0.08 MG, KETOROLAC ... INJ ONE ×5 (08:00)
[2018-09-22] MEDS ORDERED: SODIUM CHLORIDE 0.9% 1000ML 1,000 ML IV SCH (08:35)
[2018-09-22] MEDS ORDERED: ONDANSETRON HCL INJ 2 MG/ML VIAL IV PRN (08:45)
[2018-09-22] MEDS ORDERED: KETOROLAC TROMETHAMINE 30 MG/ML VIAL IV PRN (08:45)
[2018-09-22] MEDS ORDERED: ACETAMINOPHEN 650 MG SUPP PR PRN (08:45)
[2018-09-22] MEDS ORDERED: ZOLPIDEM TARTRATE 5 MG TAB PO PRN (08:45)
[2018-09-22] MEDS ORDERED: DIPHENHYDRAMINE HCL INJ 50 MG/ML VIAL IM/IV PRN (08:45)
[2018-09-22] MEDS ORDERED: PROMETHAZINE HCL (IM) 25 MG/ML VIAL INJ PRN (08:45)
[2018-09-22] MEDS ORDERED: HYDROCODONE/APAP 5MG-325MG TAB PO PRN (08:45)
[2018-09-22] MEDS ORDERED: DOCUSATE SODIUM 100 MG CAP PO PRN (08:45)
[2018-09-22] MEDS: ASPIRIN 325 MG TAB PO SCH ×2 (09:00→16:10)
--- NOTE | 2018-09-22 09:31 | Diagnostic Imaging Report ---
PROCEDURE: X-RAY LEFT KNEE, ONE OR TWO VIEWS COMPARISON: None. INDICATIONS:STATUS POST LEFT KNEE SURGERY FINDINGS: See conclusion. CONCLUSION: Status post total left knee replacement with surrounding soft tissue swelling, air and stevenson consistent with recent surgery. No acute fractures. Ovi Tsai D.O. Dictated by: Ovi Tsai D.O. on 09/22/2018 at 9:41 Electronically approved by: Ovi Tsai D.O. on 09/22/2018 at 9:41
[2018-09-22 11:00] VITALS: BP 158/87
--- NOTE | 2018-09-22 11:00 | Operative Report ---
DATE OF PROCEDURE: September 22, 2018 FORM BUILDER: Joey Lopez PA-C The patient was brought to the operating room for induction of anesthesia. Throughout this case, my PA's assistance was necessary for retraction of soft tissue and positioning of the extremity. This allows for efficient and technically successful execution of the operation and is considered medically necessary. PREOPERATIVE DIAGNOSIS: Osteoarthritis, left knee. POSTOPERATIVE DIAGNOSIS: Osteoarthritis, left knee. PROCEDURE: Left total knee arthroplasty. INDICATIONS: The patient is a 68-year-old gentleman with end-stage arthritis of his left knee. He has failed conservative management and would like to proceed with a left total knee replacement. The risks and benefits have been discussed. He states he understands and wishes to proceed. DESCRIPTION OF PROCEDURE: The patient was brought to the operating room and placed under general anesthetic. He received prophylactic antibiotics, a regional block and tranexamic acid in the holding area. His left lower extremity was prepped and draped in a sterile manner. A preoperative time out was performed. The extremity was exsanguinated, and a proximal tourniquet was inflated to 300 mmHg. An anterior approach with a medial parapatellar arthrotomy was performed. More extensive medial release was necessary due to the varus deformity. The knee was brought up into flexion with the patella everted. Marginal osteophytes and meniscal remnants were removed. The cruciate ligaments were sacrificed. A Lambert and Nephew posterior stabilized Legion knee system was used throughout the case. An extramedullary cutting guide was used to resect the proximal tibia. The cut was referenced off of the medial compartment wear. The tibial baseplate was a size number 6. The central fin punch was impacted, and attention was directed towards the distal femur. An intramedullary cutting guide was used to resect the distal femur in 5 degrees of valgus and 3 degrees of external rotation. The rotation was also referenced off of a combination of landmarks including Lorin's line, the epicondylar axis and posterior condyles. The femoral component was a size number 7. The anterior, posterior, and notch cuts were made. Trial reductions were performed. An 11-mm posterior stabilized tibial insert provided appropriate soft-tissue balancing in flexion and extension. The patella was resurfaced with a 35-mm x 9-mm patellar button. The thickness was checked before and after and was right at 26 mm. Patellar tracking was concentric. The trial implants were removed. A 100-mL premixed pericapsular injection was placed into the posterior soft tissue. Large osteochondral loose bodies were removed from the posterior compartment. The knee was thoroughly irrigated with a shower-tip pulsatile lavage. A single mix of Simplex high-viscosity cement preloaded with antibiotics was used to cement the components into place. Care was taken to remove all extravasated cement. The wound was further irrigated while the cement cured. The arthrotomy was then closed with interrupted #1 Ethibond. The knee was put through flexion and extension to ensure a secure closure. The skin was closed with subcuticular Vicryl and stevenson. A sterile bandage was applied. The patient was extubated and transported to the recovery room in stable condition. Blood loss was minimal. All needle and sponge counts were correct. Job#: [id number]
[2018-09-22 11:58] VITALS: BP 134/79
[2018-09-22 12:00] VITALS: BP 134/79
[2018-09-22] MEDS: CELECOXIB 100 MG CAP PO SCH ×2 (12:08→16:10)
[2018-09-22] MEDS: ACETAMINOPHEN 1000 MG/100 ML IV SCH ×2 (12:11→18:00)
--- NOTE | 2018-09-22 12:19 | Consultation ---
DATE OF CONSULTATION: September 22, 2018 INTERNAL MEDICINE CONSULTATION REASON FOR CONSULTATION: Medical management. HISTORY OF PRESENT ILLNESS: This is a 68-year-old man who underwent successful left total knee arthroplasty today. The surgery was performed by his orthopedic surgeon, namely Dr. Alexis Rey. I was consulted for medical management. This gentleman has a known history of hypertension, type 2 diabetes mellitus and obesity. He states that his pain is currently controlled. He denies any chest pain, shortness of breath or cough. REVIEW OF SYSTEMS GENERAL: Weight has been stable. No fever or chills. HEENT: No headaches. No visual changes. CARDIOVASCULAR/RESPIRATORY: No chest pain, no shortness of breath, no cough. GI: No nausea, vomiting, diarrhea or constipation. : No UTI or BPH symptoms. NEUROMUSCULAR: Does complain of some pain in his left knee, but it is currently controlled with pain medications. ALLERGIES: NO KNOWN DRUG ALLERGIES. PAST MEDICAL HISTORY 1. Bilateral knee osteoarthritis. 2. Obesity. 3. Hypertension. 4. Type 2 diabetes mellitus. 5. Hyperlipidemia. PAST SURGICAL HISTORY 1. Ventral abdominal hernia repair. 2. Bilateral bunion surgery. 3. Right knee surgery. 4. Left total knee replacement today. FAMILY HISTORY: Noncontributory. SOCIAL HISTORY: This man is , lives with . He is currently retired. No history of tobacco or alcohol use. HOME MEDICATIONS 1. Victoza 1.8 mg subcutaneously daily. 2. Lisinopril 10 mg daily. 3. Metformin 1000 mg b.i.d. 4. Simvastatin 40 mg nightly. PHYSICAL EXAMINATION GENERAL: He is awake, alert and fully oriented, very pleasant and cooperative with exam. His is at bedside. VITAL SIGNS: Height is 5 feet 11 inches. Weight is 245 pounds. BMI 34. Blood pressure is 158/101, pulse 96, respiratory rate is 16, oxygen saturation is 97% on room air, temperature is 97.2. INTEGUMENT: Skin is warm and dry. No pallor, jaundice, diaphoresis. HEENT: Anicteric sclerae with moist mucous membranes. NECK: Supple. CARDIOVASCULAR: Regular rate and rhythm. LUNGS: No rales, no rhonchi, no wheezes. ABDOMEN: Obese, benign. EXTREMITIES: No edema or deformity. NEUROLOGICALLY: Intact. Patient's gait is slow and antalgic since he just underwent left total knee replacement. No gross focal deficits appreciated. DIAGNOSES 1. Status post left total knee arthroplasty. 2. Hypertensive heart disease. 3. Type 2 diabetes mellitus. 4. Obesity (body mass index of 34) complicating type 2 diabetes mellitus and bilateral knee degenerative joint disease. PLAN 1. Mobilize with therapy. 2. Pain control. 3. Resume home medications. 4. Encourage incentive spirometry use. I would like to thank Dr. Rey for this generous consult. I spent 40 minutes in the care of this patient. Job#: [id number] EV
[2018-09-22] MEDS ORDERED: CEFAZOLIN SOD 1 GM/D5W 50ML 50 ML IV SCH (14:00)
[2018-09-22 16:00] VITALS: BP 124/82
[2018-09-22] MEDS: CEFAZOLIN SOD 1 GM VIAL IV SCH ×2 (16:10→22:35)
[2018-09-22] MEDS: METFORMIN HCL 500 MG TAB PO SCH ×2 (16:11→17:00)
[2018-09-22] MEDS: SIMVASTATIN 40 MG TAB PO SCH (17:05)
[2018-09-22] MEDS ORDERED: ACETAMINOPHEN 1000 MG/100 ML IV ONE (17:56)
[2018-09-22] MEDS ORDERED: ONDANSETRON HCL INJ 2 MG/ML VIAL ONE (17:56)
[2018-09-22] MEDS ORDERED: SEVOFLURANE INHAL SOLN 250 ML PEN BTL ONE (17:56)
[2018-09-22] MEDS ORDERED: LIDOCAINE HCL 2% LOCAL INJ 5 ML SDV VIAL INJ ONE (17:56)
[2018-09-22] MEDS ORDERED: DEXAMETHASONE SOD PHOS INJ 4 MG/ML VIAL ONE (17:56)
[2018-09-22] MEDS ORDERED: PROPOFOL IV EMULSION 10 MG/ML 20 ML VIAL ONE (17:56)
[2018-09-22] MEDS ORDERED: LIDOCAINE 2%/ EPINEPHRINE 20ML MDV ONE (18:05)
[2018-09-22] MEDS ORDERED: ROPIVACAINE 0.5% 5 MG/ML 30 ML SDV ONE (18:05)
[2018-09-22] MEDS ORDERED: FENTANYL CITRATE/PF 100MCG/2 ML INJ ONE (18:15)
[2018-09-22] MEDS ORDERED: MIDAZOLAM HCL 2 MG/2 ML VIAL ONE (18:15)
[2018-09-22] MEDS: HYDROCODONE/APAP 7.5MG-325MG 1 EA TAB PO PRN (19:17)
[2018-09-22 20:00] VITALS: BP 140/75
[2018-09-22 20:19] VITALS: BP 140/75
[2018-09-23 00:09] VITALS: BP 107/67
[2018-09-23] MEDS: ACETAMINOPHEN 1000 MG/100 ML IV SCH ×2 (00:09→05:48)
[2018-09-23 04:00] VITALS: BP 131/81
[2018-09-23 05:23] LABS: BASOPHILS % 0.1 % (0.0-1.0); EOSINOPHILS % 0.1 % (0.0-6.0); HEMATOCRIT 36.2 % (38.2-49.6); HEMOGLOBIN 12.3 g/dL (14.0-18.0); LYMPHOCYTES # (AUTO) 1.1 (1.0-3.2); LYMPHOCYTES % 9.2 % (18.0-39.1); MEAN CORPUSCULAR HEMOGLOBIN 32.7 pg (28-32); MEAN CORPUSCULAR VOLUME 96.3 fL (81-99); MONOCYTES # (AUTO) 1.1 (0.2-0.8); MONOCYTES % 9.5 % (4.4-11.3); NEUTROPHILS # (AUTO) 9.3 (2.1-6.9); NEUTROPHILS % 80.7 % (38.7-80.0); PLATELET COUNT 165 x10e3/uL (140-360); RED BLOOD COUNT 3.76 x10e6/uL (4.3-5.7); RED CELL DISTRIBUTION WIDTH 13.4 % (11.7-14.4)
[2018-09-23 05:42] LABS: ANION GAP 13.1 mmol/L (8-16); BLOOD UREA NITROGEN 15 mg/dL (7-26); BUN/CREATININE RATIO 19 (6-25); CALCIUM 8.6 mg/dL (8.4-10.2); CARBON DIOXIDE 24 mmol/L (22-29); CHLORIDE 106 mmol/L (98-107); EST GLOMERULAR FILTRATION RATE > 60 ML/MIN (60-); GLUCOSE 123 mg/dL (74-118); POTASSIUM 4.1 mmol/L (3.5-5.1); SODIUM 139 mmol/L (136-145)
[2018-09-23] MEDS: CEFAZOLIN SOD 1 GM VIAL IV SCH (05:47)
[2018-09-23] MEDS ORDERED: METFORMIN HCL 500 MG TAB PO SCH (08:00)
[2018-09-23 08:30] VITALS: BP 113/69
[2018-09-23] MEDS ORDERED: ACETAMINOPHEN 1000 MG/100 ML IV PRN (08:45)
[2018-09-23] MEDS ORDERED: LISINOPRIL 10 MG TAB PO SCH (09:00)
[2018-09-23] MEDS ORDERED: NON-FORMULARY MEDICATION (Liraglutide (Victoza 3-Pak) 1.8 MG) SC SCH ×2 (09:00)
[2018-09-23 09:25] VITALS: BP 113/69
[2018-09-23] MEDS: SIMVASTATIN 40 MG TAB PO SCH (09:25)
[2018-09-23] MEDS: ASPIRIN 325 MG TAB PO SCH (09:25)
[2018-09-23] MEDS: CELECOXIB 100 MG CAP PO SCH (09:25)
[2018-09-23] MEDS: HYDROCODONE/APAP 7.5MG-325MG 1 EA TAB PO PRN ×2 (09:37→13:51)
[2018-09-23 11:32] VITALS: BP 132/66
[2018-09-23] MEDS ORDERED: ASPIRIN325 MG PO (12:12)
[2018-09-23 16:03] VITALS: BP 154/78
[2018-09-23] MEDS ORDERED: NORCO 7.5-3251 EACH PO (16:11)
[2018-09-23] MEDS ORDERED: CELECOXIB 200 MG CAP PO SCH (17:00)
== END 2018-09-23 17:42 | disposition home or self-care (01) ==
LOC: OR 05:21 → PACU V 08:36 → MED/SURG 10:11
PROVIDERS: ADMIT Specialist; ATTEND Specialist
DX: M17.12 Unilateral primary osteoarthritis, left knee (principal); E11.9 Type 2 diabetes mellitus without complications; G47.33 Obstructive sleep apnea (adult) (pediatric); E78.5 Hyperlipidemia, unspecified; E66.9 Obesity, unspecified; Z68.34 Body mass index [BMI] 34.0-34.9, adult; I11.9 Hypertensive heart disease without heart failure; Z83.3 Family history of diabetes mellitus; Z79.84 Long term (current) use of oral hypoglycemic drugs
CPT/HCPCS: 27447; 36415 ×3; 71046; 73560; 80048 ×2; 82948 ×2; 85025 ×2; 86850; 86900; 86920; 93005; 97110 ×2; 97116 ×2; 97139; 97161; C1713; G0378 ×2; G8978; G8979; J0131 ×2; J0171; J0690 ×3; J1100 ×2; J1885 ×2; J2001 ×2; J2250; J2405; J2704; J2795; J7030

== ENCOUNTER 2019-01-23 09:59 | Outpatient (RCR) | payer MEDICARE ==
[~2019-01-23 09:59] MED LIST changes: +ASPIRIN325 MG PO; +NORCO 7.5-3251 EACH PO
== END 2019-01-25 ==
LOC: PT 09:59
PROVIDERS: ATTEND Specialist
DX: Z96.652 Presence of left artificial knee joint (principal); Z47.1 Aftercare following joint replacement surgery; R26.2 Difficulty in walking, not elsewhere classified; M62.81 Muscle weakness (generalized)

== ENCOUNTER 2019-04-22 08:58 | Outpatient (RCR) | payer MEDICARE | END 2019-04-26 | LOC: PT 08:58 | PROVIDERS: ATTEND Physician Assistant | DX: Z96.652 Presence of left artificial knee joint (principal); Z47.1 Aftercare following joint replacement surgery; R26.2 Difficulty in walking, not elsewhere classified; M62.81 Muscle weakness (generalized) ==

== ENCOUNTER 2019-05-26 09:00 | Outpatient (RCR) | payer MEDICARE | END 2019-05-27 | LOC: PT 09:00 | PROVIDERS: ATTEND Physician Assistant | DX: Z96.652 Presence of left artificial knee joint (principal); Z47.1 Aftercare following joint replacement surgery; M75.41 Impingement syndrome of right shoulder; M75.121 Complete rotator cuff tear or rupture of right shoulder, not specified as traumatic ==

== ENCOUNTER 2019-06-22 10:00 | Outpatient (RCR) | payer MEDICARE | END 2019-06-27 | LOC: PT 10:00 | PROVIDERS: ATTEND Physician Assistant | DX: M75.41 Impingement syndrome of right shoulder (principal) | CPT/HCPCS: 97139 ==

== ENCOUNTER 2019-07-03 08:55 | Outpatient (RCR) | payer MEDICARE | END 2019-07-27 | LOC: PT 08:55 | PROVIDERS: ATTEND Physician Assistant | DX: M75.121 Complete rotator cuff tear or rupture of right shoulder, not specified as traumatic (principal); M75.41 Impingement syndrome of right shoulder; M62.81 Muscle weakness (generalized); M25.511 Pain in right shoulder; M25.611 Stiffness of right shoulder, not elsewhere classified | CPT/HCPCS: 97139 ==

== ENCOUNTER 2019-09-29 07:45 | Observation (INO) | payer MEDICARE ==
--- NOTE | 2019-09-28 14:49 | Diagnostic Imaging Report ---
Chest, PA and lateral. History: Preoperative evaluation for knee surgery. Comparison: 09/04/2018. Discussion: The cardiomediastinal silhouette and pulmonary vasculature are within normal limits. The aorta has a tortuous appearance. The lungs are clear without evidence of consolidation or effusion. There are no acute osseous abnormalities. IMPRESSION: No radiographic evidence of acute cardiopulmonary abnormality. Signed by: Neil Arevalo MD on 09/28/2019 2:46 PM
[2019-09-28 15:09] LABS: BASOPHILS % 0.8 % (0.0-1.0); EOSINOPHILS # (AUTO) 0.2 (0.0-0.4); EOSINOPHILS % 4.1 % (0.0-6.0); HEMATOCRIT 42.8 % (38.2-49.6); HEMOGLOBIN 14.5 g/dL (14.0-18.0); LYMPHOCYTES # (AUTO) 2.5 (1.0-3.2); LYMPHOCYTES % 49.5 % (18.0-39.1); MEAN CORPUSCULAR HGB CONC 33.9 g/dL (31-35); MEAN CORPUSCULAR VOLUME 97.5 fL (81-99); MONOCYTES # (AUTO) 0.6 (0.2-0.8); MONOCYTES % 12.4 % (4.4-11.3); NEUTROPHILS # (AUTO) 1.7 (2.1-6.9); PLATELET COUNT 187 x10e3/uL (140-360); RED BLOOD COUNT 4.39 x10e6/uL (4.3-5.7); RED CELL DISTRIBUTION WIDTH 14.5 % (11.7-14.4)
[2019-09-28 15:25] LABS: ANION GAP 12.7 mmol/L (8-16); BLOOD UREA NITROGEN 13 mg/dL (7-26); BUN/CREATININE RATIO 16 (6-25); CALCIUM 9.2 mg/dL (8.4-10.2); CARBON DIOXIDE 24 mmol/L (22-29); CHLORIDE 103 mmol/L (98-107); CREATININE, SERUM 0.81 mg/dL (0.72-1.25); EST GLOMERULAR FILTRATION RATE > 60 ML/MIN (60-); GLUCOSE 150 mg/dL (74-118); POTASSIUM 3.7 mmol/L (3.5-5.1); SODIUM 136 mmol/L (136-145)
[~2019-09-29] VITALS: Ht 180.3 cm; Wt 114.3 kg
[~2019-09-29 07:45] MED LIST changes: +ROPIVACAINE 246.25 MG, EPINEPHRINE HCL 1:1000 1ML 0.5 MG, CLONIDINE HCL 0.08 MG, KETORO... INJ ONE; +VIAGRA50 MG PO
[2019-09-29] MEDS ORDERED: DEXAMETHASONE SOD PHOS 10 MG/1 ML VIAL ONE (07:56)
[2019-09-29] MEDS ORDERED: GABAPENTIN 300 MG CAP ONE (07:56)
[2019-09-29] MEDS ORDERED: CELECOXIB 200 MG CAP ONE (07:56)
[2019-09-29] MEDS ORDERED: CEFAZOLIN SOD 1 GM/NS 50ML 100 ML IV ONE (07:57)
[2019-09-29] MEDS ORDERED: VANCOMYCIN HCL 1,000 MG ONE (08:49)
[2019-09-29] MEDS ORDERED: SODIUM CHLORIDE 0.9% 500ML 500 ML ONE (08:50)
[2019-09-29] MEDS ORDERED: BACITRACIN 50,000 UNIT VIAL ONE (08:50)
[2019-09-29] MEDS ORDERED: TRANEXAMIC ACID 1,000 MG/10 ML ML ONE (08:50)
[2019-09-29] MEDS ORDERED: SODIUM CHLORIDE 0.9% 1000ML 1,000 ML IV SCH (11:08)
[2019-09-29] MEDS ORDERED: ACETAMINOPHEN 650 MG SUPP PR PRN (11:15)
[2019-09-29] MEDS ORDERED: KETOROLAC TROMETHAMINE 30 MG/ML VIAL IV PRN (11:15)
[2019-09-29] MEDS ORDERED: DOCUSATE SODIUM 100 MG CAP PO PRN (11:15)
[2019-09-29] MEDS ORDERED: HYDROCODONE/APAP 7.5MG-325MG 1 EA TAB PO PRN (11:15)
[2019-09-29] MEDS ORDERED: ONDANSETRON HCL INJ 2MG/ML 2ML 2 MG/ML VIAL IV PRN (11:15)
[2019-09-29] MEDS ORDERED: PROMETHAZINE HCL (IM) 25 MG/ML VIAL IM PRN (11:15)
[2019-09-29] MEDS ORDERED: HYDROCODONE/APAP 5MG-325MG TAB PO PRN (11:15)
[2019-09-29] MEDS ORDERED: DIPHENHYDRAMINE HCL INJ 50 MG/ML VIAL IM/IV PRN (11:15)
--- NOTE | 2019-09-29 12:26 | Diagnostic Imaging Report ---
EXAM: KNEE RIGHT 1-2 VIEWS DATE: 09/29/2019 11:08 AM INDICATION: Postop COMPARISON: None FINDINGS: Immediate AP and crosstable lateral views are obtained of the right knee. There are postsurgical changes from total right knee replacement. Hardware appears intact and in anatomic alignment. There is no evidence for acute fracture or dislocation. There is subcutaneous emphysema and small joint effusion present, likely relating to the recent surgical procedure. IMPRESSION: Expected postsurgical changes from recent right knee arthroplasty. Signed by: Dr. Rick Rasmussen MD on 09/29/2019 12:23 PM
[2019-09-29] MEDS ORDERED: FENTANYL CITRATE/PF 100MCG/2 ML INJ ONE ×2 (12:29→14:55)
--- NOTE | 2019-09-29 14:05 | NUR ---
Received patient via stretcher from PACU. AAOX4 to time, person, place, situation. O2 3L NC. Respirations even and unlabored. Aquacel Dressing to left knee clean, dry, and intact. KEVIN wrap in place. Oriented to room. Instructed to use call light for assistance.
[2019-09-29] MEDS ORDERED: PROPOFOL IV EMULSION 10 MG/ML 20 ML VIAL ONE (14:07)
[2019-09-29] MEDS ORDERED: LIDOCAINE HCL 2% LOCAL INJ 5 ML SDV VIAL INJ ONE (14:07)
[2019-09-29] MEDS ORDERED: PHENYLEPHRINE HCL 1% 10 MG/ML VIAL ONE (14:07)
[2019-09-29] MEDS ORDERED: ONDANSETRON HCL INJ 2MG/ML 2ML 2 MG/ML VIAL ONE (14:07)
[2019-09-29] MEDS ORDERED: SEVOFLURANE INHAL SOLN 250 ML PEN BTL ONE (14:07)
[2019-09-29 14:20] VITALS: BP 170/90
[2019-09-29 14:30] VITALS: BP 170/90
[2019-09-29] MEDS ORDERED: ROPIVACAINE 0.5% 5 MG/ML 30 ML SDV ONE (14:47)
[2019-09-29] MEDS ORDERED: EPINEPHRINE HCL 1:1000 1ML 1 MG/ML AMP ONE (14:47)
[2019-09-29] MEDS ORDERED: MIDAZOLAM HCL 2 MG/2 ML VIAL ONE (14:55)
[2019-09-29] MEDS: ACETAMINOPHEN 1000 MG/100 ML IV SCH ×2 (14:56→18:43)
--- NOTE | 2019-09-29 15:00 | NUR ---
aware of BP 170/90. States "Stop fluids and I will review medications when I see him"
[2019-09-29 15:32] VITALS: BP 140/88
[2019-09-29] MEDS: CELECOXIB 200 MG CAP PO SCH (16:13)
[2019-09-29] MEDS: ASPIRIN 325 MG TAB PO SCH (16:13)
[2019-09-29] MEDS: CEFAZOLIN SOD 1 GM/NS 50ML 50 ML IV SCH (16:13)
--- NOTE | 2019-09-29 16:30 | NUR ---
Patient voided clear yellow urine without distress
[2019-09-29] MEDS ORDERED: CELECOXIB 100 MG CAP PO SCH (17:00)
--- NOTE | 2019-09-29 18:58 | Operative Report ---
DATE OF PROCEDURE: 09/29/2019 SURGEON: Alexis Rey MD PERFORMANCE INSTRUCTOR: Joey Lopez PA-C certified PA. PREOPERATIVE DIAGNOSIS: Osteoarthritis, right knee. POSTOPERATIVE DIAGNOSIS: Osteoarthritis, right knee. PROCEDURE: Right total knee replacement. INDICATIONS: The patient is a 69-year-old gentleman, who has end-stage arthritis of his right knee. He has failed conservative management and would like to proceed with a knee replacement. He has been through a left knee replacement in the past couple of years. I have reviewed the risks and benefits. He states he understands and wishes to proceed. PROCEDURE IN DETAIL: The patient was brought to the operating room and placed under general anesthetic. He received a regional block, tranexamic acid, and prophylactic antibiotics in the holding area. His right lower extremity was prepped and draped in a sterile manner. A preoperative time-out was performed. The extremity was exsanguinated and a proximal tourniquet was inflated to 300 mmHg. An anterior incision with a medial parapatellar arthrotomy was performed. Clear synovial fluid was removed from the joint. Soft tissue releases were performed to bring the knee up into flexion with the patella everted. The cruciate ligaments were sacrificed. Meniscal remnants and marginal osteophytes were removed. A Lambert and Nephew Legion posterior stabilized knee system was used. An extramedullary cutting guide was used to resect the proximal tibia. The tibial base plate was a size 6. The central fin punch was impacted and attention was directed towards the distal femur. An intramedullary cutting guide was used to resect the distal femur in 6 degrees of valgus and rotation referencing off a combination of landmarks including Whitesides line, the epicondylar axis, and the posterior condyles. The femoral component was a size 7. The anterior, posterior, and notch cuts were made. Trial reductions were performed. I felt a 9 mm posterior stabilized tibial insert provided appropriate soft tissue balancing in full extension and 90 degrees of flexion. The patella was then resurfaced with a 35 mm x 9 mm patellar button. The thickness was checked before and after resurfacing and was 25 mm each time. Patellar tracking was concentric. The trial implants were then all removed. A 100 mL premixed pericapsular FREDO injection was placed into the surrounding soft tissue. The knee was thoroughly irrigated with a shower tip pulsatile lavage. All of the bone cuts had been irrigated with a spray mixture of diluted polymyxin and vancomycin spray. The components were cemented into place using a single mix of high viscosity Biomet cement preloaded with antibiotics. Care was taken to remove extravasated cement. The wound was further irrigated while the cement cured. The arthrotomy was then closed after sprinkling 500 mg of vancomycin powder into the joint. A #1 Ethibond was used to close the arthrotomy. The knee was put through flexion and extension to ensure a secure closure. The skin was closed with subcuticular Vicryl and stevenson. A sterile Aquacel bandage and an Burke wrap were applied. The patient was extubated and transported to the recovery room in stable condition. Blood loss was minimal. All needle and sponge counts were correct. Alexis Rey MD DR/PHILL /[id number]
[2019-09-29] MEDS ORDERED: SILDENAFIL CITRATE 100 MG PO SCH (19:00)
--- NOTE | 2019-09-29 19:02 | Consultation ---
DATE OF CONSULTATION: 09/29/2019 REASON FOR CONSULTATION: Medical management. HISTORY OF PRESENT ILLNESS: This 69-year-old man, who was admitted to [facility] today with diagnosis of advanced right knee degenerative joint disease. Today, the patient underwent successful right total knee replacement that was performed by his orthopedic surgeon namely Dr. Alexis Rey. The patient tolerated the procedure quite well. The patient voiced no complaints. On September 28, 2019, the patient was found to have white blood cell count of 5000 with 33% segments, hemoglobin is 14.5 g/dL. On September 28, 2019, the patient was found to have BUN and creatinine of 13 and 0.81, respectively. Potassium is 3.7. Chest x-ray done on September 28, 2019, was unremarkable. REVIEW OF SYSTEMS: GENERAL: Weight is stable. No fever or chills. HEENT: No headaches. No visual changes. CARDIOVASCULAR/RESPIRATORY: No chest pain. No shortness of breath or cough. GI: No nausea, vomiting, or constipation. : No dysuria, hematuria, or incontinence. No BPH or UTI symptoms. NEUROMUSCULAR: No limb weakness or numbness. The patient states the postoperative pain in his right knee is well controlled. ALLERGIES: NO KNOWN DRUG ALLERGIES. MEDICATIONS: 1. Victoza 1.8 mg subcutaneous daily. 2. Lisinopril 10 mg daily. 3. Metformin 1000 mg daily. 4. Sildenafil 100 mg daily as needed for erectile dysfunction. 5. Simvastatin 40 mg at bedtime. PAST MEDICAL HISTORY: 1. Right knee degenerative joint disease. 2. Type 2 diabetes. 3. Hypertensive heart disease. 4. Rectal dysfunction. 5. Dyslipidemia. 6. Obesity, BMI 35. PAST SURGICAL HISTORY: 1. Left total knee replacement in August 2018. 2. Ventral abdominal hernia repair. 3. Bilateral bunion surgery. 4. Right knee arthroscopy. FAMILY HISTORY: Noncontributory. SOCIAL HISTORY: He is , lives with his . He is currently retired. No history of tobacco or alcohol use. PHYSICAL EXAMINATION: GENERAL: He is awake, alert, fluent, very pleasant and cooperative exam. VITAL SIGNS: Blood pressure is 154/78, pulse 78, respiratory rate is 18, oxygen 93% on room air, temperature 97.0. Height 5 feet 11 inches. Weight is 254 pounds, BMI 35. INTEGUMENT: Skin is warm and dry. No pallor, jaundice, or diaphoresis. HEENT: Anterior sclerae. Moist mucous membranes. NECK: Supple. CARDIOVASCULAR: Distant heart sounds. Regular rate and rhythm, with an S4 gallop. LUNGS: No rales. No rhonchi. No wheezes. ABDOMEN: Obese, yet benign. EXTREMITIES: The right knee is currently in a continuous passive motion machine. No edema in legs. NEUROLOGIC: Intact. No gross deficits appreciated. DIAGNOSES: 1. Status post right total knee replacement. 2. Hypertensive heart disease. 3. Type 2 diabetes mellitus. 4. Obesity, BMI 35. PLAN: 1. Mobilize therapy. 2. Pain control. 3. Encourage incentive spirometry to prevent atelectasis. 4. Resume home medications. I spent 40 minutes in the care of this patient. I would like to thank Dr. Rey for this consultation. MD CHELSEY Moran/PHILL /[id number] MTDD
--- NOTE | 2019-09-29 19:10 | NUR ---
Bedside rounding completed with morning nurse. Pt alert and oriented to name. Pt lying in bed HOB 45 degrees. Denies bradley at this time. CPM on 50. Call light within reach. Bed low and locked.
--- NOTE | 2019-09-29 19:13 | NUR ---
Report given to oncoming nurse of patients status. Resting in bed. No s/s of acute distress noted. CPM machine on at 50. Side rails upx2, call light within reach.
[2019-09-29 20:00] VITALS: BP 128/73
[2019-09-29 21:00] VITALS: BP 128/73
[2019-09-29] MEDS ORDERED: SIMVASTATIN 40 MG TAB PO SCH (21:00)
[2019-09-29] MEDS ORDERED: ZOLPIDEM TARTRATE 5 MG TAB PO PRN (21:00)
[2019-09-30] VITALS: BP 144/84
[2019-09-30] MEDS: CEFAZOLIN SOD 1 GM/NS 50ML 50 ML IV SCH ×2 (02:05→09:23)
[2019-09-30 04:00] VITALS: BP 141/93
[2019-09-30 05:50] LABS: HEMATOCRIT 40.8 % (38.2-49.6); HEMOGLOBIN 13.4 g/dL (14.0-18.0)
[2019-09-30] MEDS: ACETAMINOPHEN 1000 MG/100 ML IV SCH ×2 (06:30)
[2019-09-30 07:59] VITALS: BP 144/73
[2019-09-30 08:12] VITALS: BP 144/73
[2019-09-30] MEDS: ASPIRIN 325 MG TAB PO SCH (08:40)
[2019-09-30] MEDS: CELECOXIB 200 MG CAP PO SCH (08:40)
[2019-09-30] MEDS ORDERED: NON-FORMULARY MEDICATION (Liraglutide (Victoza 3-Pak) 1.8 MG) SC SCH (09:00)
[2019-09-30] MEDS ORDERED: LISINOPRIL 10 MG TAB PO SCH (09:00)
[2019-09-30] MEDS ORDERED: METFORMIN HCL 500 MG TAB PO SCH (09:00)
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
--- NOTE | 2019-09-30 10:06 | NUR ---
CINTHIA explained to patient, patient signed, copy to chart,copy to pt
[2019-09-30] MEDS ORDERED: ACETAMINOPHEN 1000 MG/100 ML IV PRN (11:15)
[2019-09-30 12:01] VITALS: BP 114/58
--- NOTE | 2019-09-30 16:10 | NUR ---
patient alert and oriented, at bedside. discharge instructions given to patient at this time, both verbalized understanding. IV discontinued, catheter in tact and small dressing applied. patient to be wheeled out to personal auto for to drive home.
== END 2019-09-30 16:20 | disposition home health service (06) ==
LOC: OR 07:45 → PACU V 11:09 → MED/SURG 14:06
PROVIDERS: ADMIT Specialist; ATTEND Specialist
DX: M17.11 Unilateral primary osteoarthritis, right knee (principal); Z01.810 Encounter for preprocedural cardiovascular examination; Z01.812 Encounter for preprocedural laboratory examination; Z01.811 Encounter for preprocedural respiratory examination; I11.9 Hypertensive heart disease without heart failure; E78.5 Hyperlipidemia, unspecified; E66.9 Obesity, unspecified; Z68.35 Body mass index [BMI] 35.0-35.9, adult; E11.9 Type 2 diabetes mellitus without complications; G47.33 Obstructive sleep apnea (adult) (pediatric); Z79.84 Long term (current) use of oral hypoglycemic drugs
CPT/HCPCS: 27447; 36415 ×3; 71046; 73560; 80048; 82948 ×2; 85014; 85018; 85025; 86850; 86900; 86920; 93005; 97116; 97162; 97530 ×2; C1713; G0378 ×2; J0131 ×2; J0171; J0690 ×2; J1100; J1885; J2001; J2250; J2370; J2405; J2704; J2795; J3010; J3370; J7030; J7040